=== PATIENT | male | born 1995 | race Caucasian/White ===

== ENCOUNTER 2017-08-01 10:03 | Emergency (ER) | payer SELFPAY ==
[~2017-08-01] VITALS: Ht 162.6 cm; Wt 59.4 kg
[2017-08-01 10:37] LABS: BASOPHIL (%) 1.1 % (0-1); BASOPHIL COUNT 0.1 K/uL (0-0.1); EOSINOPHIL (%) 0.6 % (0-5); EOSINOPHIL COUNT 0.1 K/uL (0-0.3); HEMATOCRIT 50.1 % (38.0-50.0); HEMOGLOBIN 17.5 G/DL (12.5-16.6); IMMATURE GRANULOCYTE (%) 0.3 % (0.0-0.7); LYMPHOCYTE (%) 26.4 % (15-42); LYMPHOCYTE COUNT 2.4 K/uL (1.0-2.8); MCH 32.8 PG (29.0-34.0); MCHC 34.9 G/DL (30.0-36.0); MCV 93.8 FL (86-99); MONOCYTE (%) 5.9 % (3-12); MONOCYTE COUNT 0.5 K/uL (0-0.8); NEUTROPHIL (%) 65.7 % (45-76); NEUTROPHIL COUNT 5.9 K/uL (1.8-6.4); PLATELET COUNT 271 K/uL (156-360); RBC DIS.WIDTH-CV 11.8 % (11.8-14.6); RBC DIS.WIDTH-SD 40.7 % (39-53); RED BLOOD COUNT 5.34 M/uL (4.00-5.50); WHITE BLOOD COUNT 8.9 K/uL (4.1-10.2)
[2017-08-01 10:46] LABS: ALBUMIN 5.4 g/dL (3.2-4.8)
[2017-08-01 10:47] LABS: CHLORIDE 107 mEq/L (99-109); POTASSIUM 4.5 mEq/L (3.7-5.4); SODIUM 148 mEq/L (136-147)
[2017-08-01 10:49] LABS: GLUCOSE 79 mg/dL (70-99); TOTAL PROTEIN 8.7 g/dL (6.4-8.3)
[2017-08-01 10:51] LABS: TOTAL BILIRUBIN 0.8 mg/dL (0.0-1.0)
[2017-08-01 10:52] LABS: ALKALINE PHOSPHATASE 87 IU/L (3-129); SERUM ETHYL ALCOHOL 196 mg/dL
[2017-08-01 10:53] LABS: CREATININE 1.2 mg/dL (0.6-1.3); GFR ESTIMATE (CALCULATED) > 59 mL/min/ (58.99-99999)
[2017-08-01 10:54] LABS: AST (GOT) 36 IU/L (2-34); UREA NITROGEN (BUN) 10 mg/dL (9-23)
[2017-08-01 10:56] LABS: ALT (GPT) 23 IU/L (3-49)
[2017-08-01 11:40] LABS: THC CANNABINOIDS PRESUMPTIVE POSITIVE (50 ng/mL)
[2017-08-01 11:41] LABS: AMPHETAMINE NEGATIVE (500 ng/mL); BARBITURATES NEGATIVE (200 ng/mL); BENZODIAZEPINES PRESUMPTIVE POSITIVE (150 ng/mL); BUPRENORPHINE NEGATIVE (10 ng/mL); COCAINE NEGATIVE (150 ng/mL); METHADONE NEGATIVE (200 ng/mL); METHAMPHETAMINE NEGATIVE (500 ng/mL); OPIATES (MORPHINE) NEGATIVE (100 ng/mL); OXYCODONE NEGATIVE (100 ng/mL); PHENCYCLIDINE NEGATIVE (25 ng/mL); PROPOXYPHENE NEGATIVE (300 ng/mL); TRICYCLIC ANTIDEPRESSANTS NEGATIVE (300 ng/mL)
[2017-08-01 12:26] LABS: BENZODIAZEPINES, URINE SCREEN POSITIVE (200 ng/mL)
[2017-08-01 15:31] VITALS: BP 101/51
== END 2017-08-01 15:32 | disposition home or self-care (01) ==
LOC: EME 10:03
PROVIDERS: Emergency Medicine
DX: F43.23 Adjustment disorder with mixed anxiety and depressed mood (principal); M41.9 Scoliosis, unspecified; F17.200 Nicotine dependence, unspecified, uncomplicated; Z04.6 Encounter for general psychiatric examination, requested by authority; Z87.39 Personal history of other diseases of the musculoskeletal system and connective tissue
CPT/HCPCS: 80053; 84999; 85025; 90837; 99281; 99285; G0480

== ENCOUNTER 2017-12-04 10:52 | Emergency (ER) | payer SELFPAY ==
[~2017-12-04] VITALS: Ht 165.1 cm; Wt 59.2 kg
[2017-12-04 11:47] LABS: HEMATOCRIT 40.8 % (38.0-50.0); HEMOGLOBIN 14.7 G/DL (12.5-16.6); MCH 32.7 PG (29.0-34.0); MCV 90.7 FL (86-99); PLATELET COUNT 225 K/uL (156-360); RBC DIS.WIDTH-CV 11.8 % (11.8-14.6); RBC DIS.WIDTH-SD 39.3 % (39-53); WHITE BLOOD COUNT 7.4 K/uL (4.1-10.2)
[2017-12-04 12:05] LABS: ALBUMIN 4.4 g/dL (3.2-4.8); CHLORIDE 105 mEq/L (99-109); POTASSIUM 3.7 mEq/L (3.7-5.4); SODIUM 140 mEq/L (136-147)
[2017-12-04 12:07] LABS: GLUCOSE 109 mg/dL (70-99); TOTAL PROTEIN 7.1 g/dL (6.4-8.3)
[2017-12-04 12:09] LABS: TOTAL BILIRUBIN 1.1 mg/dL (0.0-1.0)
[2017-12-04 12:10] LABS: SERUM ETHYL ALCOHOL < 10 mg/dL
[2017-12-04 12:11] LABS: ALKALINE PHOSPHATASE 68 IU/L (3-129); CREATININE 0.9 mg/dL (0.6-1.3); GFR ESTIMATE (CALCULATED) > 59 mL/min/ (58.99-99999)
[2017-12-04 12:12] LABS: AST (GOT) 29 IU/L (2-34); UREA NITROGEN (BUN) 12 mg/dL (9-23)
[2017-12-04 12:14] LABS: ALT (GPT) 17 IU/L (3-49)
[2017-12-04 13:23] LABS: AMPHETAMINE NEGATIVE (500 ng/mL); BARBITURATES NEGATIVE (200 ng/mL); BENZODIAZEPINES NEGATIVE (150 ng/mL); COCAINE NEGATIVE (150 ng/mL); METHADONE NEGATIVE (200 ng/mL); METHAMPHETAMINE NEGATIVE (500 ng/mL); OPIATES (MORPHINE) NEGATIVE (100 ng/mL); OXYCODONE NEGATIVE (100 ng/mL); PHENCYCLIDINE NEGATIVE (25 ng/mL); PROPOXYPHENE NEGATIVE (300 ng/mL); THC CANNABINOIDS NEGATIVE (50 ng/mL); TRICYCLIC ANTIDEPRESSANTS NEGATIVE (300 ng/mL)
[2017-12-04 13:24] LABS: BUPRENORPHINE NEGATIVE (10 ng/mL)
[2017-12-04 14:10] VITALS: BP 131/90
== END 2017-12-04 14:10 | disposition home or self-care (01) ==
LOC: EME 10:52
PROVIDERS: Emergency Medicine
DX: R56.9 Unspecified convulsions (principal); F43.22 Adjustment disorder with anxiety; R94.31 Abnormal electrocardiogram [ECG] [EKG]; Z72.0 Tobacco use
CPT/HCPCS: 70450; 80053; 83605; 85027; 93005; 99281; 99283; G0480; J7030